=== PATIENT | female | born 1930 | race Caucasian/White ===

== ENCOUNTER 2016-12-01 10:57 | Observation (INO) | payer MEDICARE, OTHER ==
[~2016-12-01] VITALS: Ht 154.9 cm; Wt 73.5 kg
--- NOTE | ~2016-12-01 | CON ---
PATIENT'S NAME: ANDREA RIVERA [facility] AGE: 86 Y [address] ROOM: [place] [address] LOCATION: [facility] ADMIT DATE: 12/01/2016 Consultation DISCHARGE DATE: 12/02/2016 FAMILY PHYSICIAN: Markie Mohamud DO ATTENDING PHYSICIAN: Zuleima Nunez DATE OF CONSULTATION: 12/02/2016 REFERRING PHYSICIAN: Harley Rodriguez DO REQUESTING PHYSICIAN: Dr. Nunez. REASON FOR CONSULTATION: Tzunppha-jf-pvdaly aortic stenosis. HISTORY OF PRESENT ILLNESS: The patient is an 86-year-old white female, patient of Dr. Nunez, who has been complaining of symptomatic fatigue and shortness of breath with exertion. It affects her activities of daily living. This has been going on for approximately 6 months now. The patient is currently requiring 2 L of oxygen at night. The patient underwent an echocardiogram with Dr. Nunez with findings of [id number] aortic stenosis with an aortic valve area of 0.5 cm, mean gradient of 35 mm, and a peak velocity of 3.7 m/sec. Pulmonary pressures were noted at [address] Nunez has spoke to the patient with regard to undergoing a cardiac catheterization, both right and left to delineate the coronaries and then further discuss need for remediation of the aortic valve. The patient underwent a cardiac catheterization today with findings of nonobstructive coronary arteries. Dr. Nunez had asked Dr. Rodriguez to see the patient in consultation to discuss what her candidacy for a possible surgical aortic valve replacement. PAST MEDICAL HISTORY: Illnesses: Hypertension, DVT of the right leg, left breast, cancer, osteoarthritis, gout, GERD, hypothyroidism, and congestive heart failure. SURGERIES/PROCEDURES: Four right hip surgeries, cholecystectomy, hysterectomy, bilateral cataract surgery, bilateral carpal tunnel release, hernia repair x2, left mastectomy, C- section, and previous cardiac catheterization. SOCIAL HISTORY: The patient resides in [place]. She is . She has grown children. She is a nonalcohol consumer. She is a nonsmoker. FAMILY HISTORY: PATIENT'S NAME: ANDREA RIVERA [facility] AGE: 86 Y [address] ROOM: [place] [address] LOCATION: [facility] ADMIT DATE: 12/01/2016 Consultation DISCHARGE DATE: 12/02/2016 FAMILY PHYSICIAN: Markie Mohamud DO ATTENDING PHYSICIAN: Zuleima Nunez Her brother had history of an aortic valve replacement. MEDICATIONS: 1. Albuterol 2 puffs per inhalation daily. 2. Allopurinol 100 mg daily. 3. Aspirin 81 mg daily. 4. Lipitor 40 mg daily. 5. Calcium 500 mg with vitamin D daily. 6. Colchicine 0.6 mg p.o. every 48 hours. 7. Vasotec 10 mg daily. 8. Levothyroxine 50 mcg daily. 9. Lopressor 50 mg b.i.d. 10. Multivitamin. 11. Omeprazole 20 mg daily. 12. Potassium chloride 20 mEq daily. 13. Nucynta 50 mg q.4 hours p.r.n. pain. 14. Ambien 5 mg q.h.s. SYSTEM REVIEW: GENERAL: The patient has had excessive fatigue recently affecting her activities. HEENT: Does have some age-related vision changes as well as some mild hearing loss. ALLERGIES: She does have seasonal allergies. RESPIRATORY: Does have a history of asthma. She is short of breath, also dyspneic on exertion. CARDIOVASCULAR: No chest pain, chest pressure, or palpitations. She does have a history of murmur. No ongoing complaints with lower extremity edema. GI: Does have GERD like symptoms, for which she takes medication. : No specific voiding complaints. MUSCULOSKELETAL: Does have generalized arthritic aches and pains. NEUROLOGIC: Does have a history with shingles. ENDOCRINE: Does have a history with thyroid disease and takes replacement. INTEGUMENT: No known skin diseases. PHYSICAL EXAMINATION: VITAL SIGNS: Blood pressure 130/63, pulse 69, respirations 14, temp 97.8, O2 saturations 96%. Weight is 73.5 kg, height is 154.9 cm. Examination was deferred for this visit. DATA: The cardiac catheterization does return nonobstructive. The echocardiogram is as per HPI. She underwent a V/Q scan, which reveals very low probability for pulmonary emboli. PATIENT'S NAME: ANDREA RIVERA [facility] AGE: 86 Y [address] ROOM: [id number] [place], [place] [id number] LOCATION: [facility] ADMIT DATE: 12/01/2016 Consultation DISCHARGE DATE: 12/02/2016 FAMILY PHYSICIAN: Markie Mohamud DO ATTENDING PHYSICIAN: Zuleima Nunez IMPRESSION: 1. Critical aortic stenosis per echocardiogram. 2. Dyspnea on exertion. 3. Fatigue. RECOMMENDATIONS AND PLAN: Dr. Rodriguez has reviewed the studies. He has evaluated the patient for risk stratification and undergoing a surgical aortic valve replacement. The patient does score at 8% risk for mortality. This does not a factor in her fragility. Given her low cardiac output and lower flow with an EF at 40%, she would be at high risk, and therefore, a TAVR is recommended over surgical aortic valve replacement. This was discussed with the patient and family, and they are in agreeance. We would like to thank Dr. Nunez for allowing us to see the patient in consultation. AYALA MCKENNA APRN FOR HARLEY RODRIGUEZ, DLQ/modl /[id number] d: 12/16/161999 t: 12/17/16 1401, CONSULTATION REPORT
--- NOTE | ~2016-12-01 | PUL ---
PATIENT'S NAME: ANDREA RIVERA [facility] AGE: 86 Y [address] ROOM: [address] [address] LOCATION: [facility] ADMIT DATE: 12/01/2016 Pulmonary DISCHARGE DATE: 12/02/2016 FAMILY PHYSICIAN: Markie Mohamud DO ATTENDING PHYSICIAN: Zuleima Nunez NAME OF PROCEDURE: Overnight Pulse Oximetry DATE OF PROCEDURE: December 01 to December 02, 2016 REASON FOR EXAM: Nocturnal Hypoxemia RESULTS: The test was performed on room air. The recording was 5 hours, 49 minutes, and 32 seconds with a total valid sampling rate of 5 hours, 49 minutes, and 24 seconds. The highest pulse was 68, lowest pulse was 47, with a mean pulse of 57. The highest SpO2 was 98%, lowest SpO2 was 86%, with a mean SpO2 of 92.5%. The patient spent 3 hours, 48 minutes with SpO2 less than 89%, representing 1.1% of the total sleep time. The desaturation event index was elevated at 26.4. PHYSICIAN INTERPRETATION: The patient has no evidence of significant nocturnal hypoxia as per Medicare group one criteria but can have significant nocturnal hypoxia as per Medicare group two criteria. There is also evidence of an elevated desaturation event index which is suggestive of obstructive sleep apnea. Clinical correlation is advised. MD MARIO BARCENAS/sayra /[id number] dtt: 12/03/16 1523 , ROBERTO REYNOLDS dtd: 12/03/16 1135
--- NOTE | ~2016-12-01 | CATH ---
Cardiac Diagnostic Report Demographics Patient Name MIGUEL Barreto Gender Female Date of 1930 Age 86 year(s) Patient Number [id number] Date of Study 12/01/2016 Visit Number [id number] Room Number G[address] [place] [id number] Ht 155 cm Wt 73.5 kg Referring Mayra Primary Physician Physician Zuleima RICHARDSON Performing Mayra Secondary Physician Physician Zuleima RICHARDSON Diagnostic Mayra Assisting Physician Physician Zuleima RICHARDSON Interventional Physician Manager User Experience Physician Findings and Conclusions Diagnostic Findings and Conclusion Calcifications involving proximal coronaries 1. Severely elevated LVEDP 21 2. Severe PHTN 70's 3. LEVEF 40% 4. Mild CAD 5. Severe mean gradient 25mm 6. YUDY 0.9cm2 or 0.5cm2/m2 BSA 7 SV 35ml/beat 8. Low output, low gradient 9. Severe Diagnostic Recommendations CTS consult Procedure Description The patient was brought to the diagnostic cardiac catheterization-EP laboratory in the fasting, non-sedated state. Informed consent was obtained in the written and verbal form after the risks and benefits were explained. The patient had no further questions and agreed to proceed. The planned puncture-incision site(s) were shaved and prepped with ChloraPrep and draped in the usual sterile manner. Conscious sedation, supplemental oxygen, and pain control medications were delivered by a registered nurse under physician guidance. Surface ECG rhythm, blood pressure measurement, and pulse oximetry were monitored throughout the procedure. Arterial access. The access site was infiltrated with lidocaine. The vessel was entered with the Seldinger technique. A sheath was advanced into the vessel and used for catheter placement. Venous access. The access site was infiltrated with lidocaine. The vessel was entered with the Seldinger technique. A sheath was advanced into the vessel and used for catheter placement. Selective left coronary angiography. A catheter was advanced into the left coronary vessel ostium under Fluoroscopic guidance. Contrast was injected by hand. Images were obtained in multiple projections. Selective right coronary angiography. A catheter was advanced into the right coronary vessel ostium under fluoroscopic guidance. Contrast was injected by hand. Images were obtained in multiple projections. Left heart catheterization with ventriculography. A catheter was advanced across the aortic valve to the left ventricle under fluoroscopic guidance. Resting hemodynamics were obtained. With the catheter at the left ventricular apex, contrast was injected. Images were obtained in ARRIOLA projections. Post-ventriculography LV pressure was obtained. The catheter was gradually withdrawn into the aorta with continuous pressure recording. Right heart catheterization. A Boulder Leyda catheter was successfully advanced to the right atrium, right ventricle, pulmonary artery, and pulmonary artery wedge position under fluoroscopic guidance. Resting hemodynamics were obtained. Measurements included pressures, arterial and venous oxygen saturation samples, and cardiac output. The Boulder was removed without difficulty. Arterial artery hemostasis was achieved. The patient was transferred to a regular nursing floor via cart accompanied by a nurse. The patient left the laboratory in stable condition. Diagnostic Cath Status: Elective Procedure Procedure Type Diagnostic procedure:Ventriculogram:, Left, Angiography:, Right and Left Heart Cath, Coronary Angios The procedure was explained in detail to the patient. Risks, complications and alternative treatments were reviewed. Written consent was obtained. Medications Reviewed with Patient prior to Procedure. Angiographic Findings Dominance: Right Cardiac Arteries and Lesion Findings LMCA: prox 30%, distal 20% Lesion on LMCA: Distal subsection.20% stenosis . Lesion on LMCA: Ostial.30% stenosis . LAD: Abnormal.mild diffuse disease, mid 20% Lesion on Mid LAD: Mid subsection.20% stenosis . LCx: Abnormal.prox 25% OM mild diffuse disease Lesion on Prox CX: Proximal subsection.25% stenosis . RCA: Abnormal.mild diffuse disease Coronary Tree Procedure Data Procedure Date Date: 12/01/2016Start: 04:02 PMEnd: 05:25 PM Entry Locations - Retrograde Percutaneous access was performed through the Right Femoral artery (Primary location). A 6 Fr sheath was inserted. Hemostasis was successfully obtained using Manual Compression. Closure Comments: pressure held by angeilca. - Antegrade Percutaneous access was performed through the Right Femoral vein. A 7 Fr sheath was inserted. Hemostasis was successfully obtained using Manual Compression. Closure Comments: pressure held by Angelica. Procedure Medications Order and Administration + + +-------+------+ !Time !Medication !Dosage !Route ! + + +-------+------+ !12/01/2016 04:02 PM !Fentanyl !25 mcg !I.V. ! + + +-------+------+ !12/01/2016 04:09 PM !Fentanyl !25 mcg !I.V. ! + + +-------+------+ Devices Used - A6 Fr. BS JR 4 Diag. Catheterwas used for:Right coronary angiography. - A6 Fr. Dual Lumen MPwas used for:LV Pressures. - A6 Fr. BS Angled Pigtail Diag. Catheterwas used for:Left ventriculography. - A6 Fr. BS JR 4 Diag. Catheterwas used for:Right coronary angiography. - A6 Fr. BS JL 4 Diag. Catheterwas used for:Left coronary angiography. Contrast Material - Isovue [id number] ml Fluoroscopy Time: Diagnostic: 11:42 minutes. Total: 11:42 minutes. Fluoroscopy Dose: Diagnostic: 1028 mGy. Total: 1028 mGy. Estimated Blood Loss: 30 ml. Medical History Allergies - Penicillin. - Cephalosporines. - Other:(betalactams). - Penicillin. Risk Factors The patient risk factors include:peripheral arterial disease, physical activity, hypercholesterolemia, hypertension, family history of premature CAD, chronic lung disease, last creatinine: 1.3 mg/dl, creatinine clearance: 36.04 ml/min and dyslipidemia. Admission Data Admission Date: 12/01/2016 Admission Time: 08:50 PM Admit Source: Other Insurance Payors: Medicare. Admission Medications + +------+------+ + + + + !Medication !Dosage!Times !Last !Last !Administered !Comments ! ! ! !Per !Delivery !Delivery ! ! ! ! ! !Day !Date !Time ! ! ! + +------+------+ + + + + !Beta ! ! ! ! ! ! ! !Lisa ! ! ! ! ! ! ! !(any) ! ! ! ! ! ! ! + +------+------+ + + + + !Aspirin ! ! ! ! ! ! ! !(any) ! ! ! ! ! ! ! + +------+------+ + + + + !Statin ! ! ! ! ! ! ! !(any) ! ! ! ! ! ! ! + +------+------+ + + + + Clinical Evaluation Leading to Procedure - Anti-anginal medications were prescribed during the past two weeks. The medications are: Beta Blockers, Ca channel Blockers and Other. - There were no CAD presentation symptoms. - There were no anginal symptoms. Anti-anginal medications were prescribed during the past two weeks. The medication is: Beta Blockers. - The patient has been in a state of heart failure within the past two weeks. - The patient's heart failure status was assessed as NYHA Class III, with CHF symptoms of MARCIAL. - The reason for the patient's mason tender restoration labor visit is evaluation of cardiomyopathy and/or evaluation of left ventricular systolic dysfunction. VA Ventriculography Findings Rey elevated LVEDP 21 LV function assessed as:Abnormal. Ejection Fraction - 12/01/2016 - Method: LV gram. EF%: 40. Hemodynamics Condition: Rest O2 Consumption: Estimated: 153.44Heart Rate: 70 bpm Oxygen Saturation +--------+-----+----+ +----+ + !Location!pCO2 !pO2 !% Saturation !Hgb !O2 Content ! +--------+-----+----+ +----+ + !FA ! ! !88.1 !11.6! ! +--------+-----+----+ +----+ + !PA ! ! !46.2 !11.6! ! +--------+-----+----+ +----+ + Pressures (mmHg) +-----+ + !Site !Pressure ! +-----+ + !RA ! (15) ! +-----+ + !RA ! (16) ! +-----+ + !RV ! ,16 ! +-----+ + !PCW ! (29) ! +-----+ + !PCW !32/28 (25) ! +-----+ + !PA !74/27 (45) ! +-----+ + !LV !177/16 ,23 ! +-----+ + !LV !176/14 ,22 ! +-----+ + !AO !167/76 (112) ! +-----+ + !LV !180/20 ,23 ! +-----+ + !AO !165/76 (113) ! +-----+ + !LV !179/18 ,22 ! +-----+ + !AO !168/ (115) ! +-----+ + !LV !181/19 ,23 ! +-----+ + !AO !164/76 (113) ! +-----+ + !LV !178/18 ,21 ! +-----+ + !AO !165/78 (113) ! +-----+ + !LV !179/20 ,20 ! +-----+ + !AO !156/72 (108) ! +-----+ + !LV !173/16 ,20 ! +-----+ + !LV !176/17 ,23 ! +-----+ + !LV !174/16 ,21 ! +-----+ + !LV !167/13 ,19 ! +-----+ + !LV !172/18 ,23 ! +-----+ + !AO !162/73 (109) ! +-----+ + !LV !171/16 ,21 ! +-----+ + Cardiac Output + + +------+ !Time !Cardiac Output (l/min) !Use ! + + +------+ !12/01/2016 04:21 PM !2.55 !False ! + + +------+ !12/01/2016 04:22 PM !2.36 !True ! + + +------+ !12/01/2016 04:22 PM !2.42 !True ! + + +------+ !12/01/2016 04:23 PM !2.32 !True ! + + +------+ !12/01/2016 04:24 PM !2.09 !False ! + + +------+ Cardiac Output +-------+ + + + !Method !CO (l/min) !CI (l/min/m2) !SV (ml) ! +-------+ + + + !Shorty !2.32 !1.3 !33.1 ! +-------+ + + + !Thermal!2.495504 !1.4 !36.98 ! +-------+ + + + Valve Gradients and Areas + +--------+--------+--------+---------+ + + !Valve !Peak !Mean !Area !Index !Flow !Source ! + +--------+--------+--------+---------+ + + !Aortic !9 !10 !0.87 !0.5 !121.91 !Shorty ! + +--------+--------+--------+---------+ + + !Aortic !9 !10 !0.89 !0.51 !124.37 !Thermal ! + +--------+--------+--------+---------+ + + Shunts Oxygen Values O2 Capacity 157.76 O2 Consumption 153.44 Flows (l/min) Qs 2.32 Vascular Resistance (dynes x sec x cm-5) + +-----+-----+-----+----+---------+-------+ !CO method !TSVR !SVR !TPVR !PVR !TPVR/TSVR!PVR/SVR! + +-----+-----+-----+----+---------+-------+ !Shorty !46.97!39.94!19.19!8.54!0.41 !0.21 ! + +-----+-----+-----+----+---------+-------+ !Thermal !46.04!39.15!18.82!8.37!0.41 !0.21 ! + +-----+-----+-----+----+---------+-------+ !Qp or Qs !46.97!39.94! ! ! ! ! + +-----+-----+-----+----+---------+-------+ Discharge Data Discharge Date: 12/02/2016 Hospital Status: Inpatient Signatures dtt: Zuleima Nunez dtd: 12/01/16 1601 Physician Self Edit
[~2016-12-01 10:57] MED LIST: ALLOPURINOL100 MG PO; AMBIEN5 MG PO; ASPIRIN EC81 MG PO; CALCIUM 500 +1 EAC5 PO; CARDIZEM CD)(T180 MG PO; COLCHICINE0.6 MG PO; LEVOTHROID (SY50 MCG PO; LIPITOR40 MG PO; LOPRESSOR50 MG PO; MULTIVITAMINS1 EAC1 PO; NUCYNTA50 MG PO; OMEPRAZOLE20 M1 PO; OXYGEN M-15 INH; PROVENTIL OR V6.7 GM INH; VASOTEC10 MG PO
[2016-12-02 04:26] LABS: ANION GAP 12.4 (10.0-19.0); CREATININE 1.1 mg/dL (0.5-1.1); POTASSIUM 3.4 mMol/L (3.7-5.1)
[2016-12-02] MEDS ORDERED: LASIX20 MG PO (11:40)
[2016-12-02] MEDS ORDERED: K-TAB 10MEQ10 MEQ PO (11:42)
[2016-12-24] MEDS ORDERED: ASCORBIC ACID500 MG PO (12:11)
[2016-12-24] MEDS ORDERED: NITROFURANTOIN100 MG PO (12:22)
== END 2016-12-02 12:40 | disposition disaster alternative care site (69) ==
LOC: GPCU 10:57 → GPOC 10:57 → GPCU 20:49 → GPOC 20:50 → GPCU 20:50 → GPOC 12-02 12:40
PROVIDERS: ADMIT Internal Medicine Interventional Cardiology
DX: I25.10 Atherosclerotic heart disease of native coronary artery without angina pectoris (principal); I35.0 Nonrheumatic aortic (valve) stenosis; I11.0 Hypertensive heart disease with heart failure; I50.9 Heart failure, unspecified; E78.5 Hyperlipidemia, unspecified; M10.9 Gout, unspecified; Z79.82 Long term (current) use of aspirin; Z79.01 Long term (current) use of anticoagulants; Z79.899 Other long term (current) drug therapy; Z90.710 Acquired absence of both cervix and uterus; Z90.49 Acquired absence of other specified parts of digestive tract; Z96.641 Presence of right artificial hip joint; Z88.0 Allergy status to penicillin; Z98.49 Cataract extraction status, unspecified eye; Z88.8 Allergy status to other drugs, medicaments and biological substances
CPT/HCPCS: A9270; A9539; A9540; C1769; C1887; J1644; J2001; J2250; J3010; J7030; J7060

== ENCOUNTER → 2016-12-29 | Day surgery (SDC) | payer MEDICARE, OTHER ==
[~2016-12-29] VITALS: Ht 154.9 cm; Wt 74.0 kg
[~2016-12-29] MED LIST changes: +ASCORBIC ACID500 MG PO; +K-TAB 10MEQ10 MEQ PO; +LASIX20 MG PO; +NITROFURANTOIN100 MG PO
--- NOTE | ~2016-12-29 | ECHO ---
Transesophageal Echocardiography Report (YINKA) Demographics Patient Name ANDREA RIVERA Date of Study 12/29/2016 Patient Number [id number] Visit Number [id number] Date of 1930 Room Number Gender Female Number Age 86 year(s) Referring Cade Patel DO Precision Machining Instructor Jacek Hernandez RVT, Physician Bill Tillman RDCS, MD Physician Interpreting Bill Tillman Cash Posting Representative Physician MD Supervising Ordering Bill Tillman MD/MLP Physician MD Nurse Stress Top Dyeing Machine Tender Conclusions Summary Mildly reduced LV systolic function. Estimated LVEF is about 30-35%. Grossly normal RV size and systolic function. Moderate LA enlargement. The aortic valve is trileaflet with restricted opening. Mild AI. The aortic valve area by planimetry is 0.7 cm2. Mild MR. Mild to moderate TR. Procedure Type of Study YINKA procedure:Color Doppler. Procedure Date Date: 12/29/2016 Start: 08:58 AM Study Location: Inpatient Portable Technical Quality: Adequate visualization Indications:Aortic stenosis. Appropriate Use Criteria: 8 Patient Status: Routine Rhythm: Paced HR: 63 bpm BP: 141/70 mmHg YINKA Performed By: the attending and the gate supervisor Allergies - Penicillin. - Cephalosporines. - Other:(betalactams). - Penicillin. M-Mode/2D Measurements AO Root Dimension: 2.2 cm LVOT: 1.9 cm Doppler Measurements AV Peak Velocity: 1.72 m/s AV Peak Gradient: 11.83 mmHg AV Mean Gradient: 7 mmHg Findings Right Ventricle Normal right ventricular size and function. Left Atrium There is no LA or LA appendage thrombus or spontaneous contrast. There is no evidence of patent foramen ovale or atrial septal defect by color Doppler. The left atrium is moderately dilated. Right Atrium The right atrium is not dilated. Mitral Valve Mild calcification of the mitral valve. Mild mitral regurgitation by color Doppler. Aortic Valve The aortic valve is trileaflet with restricted opening. Mild AI. The aortic valve area by planimetry is 0.7 cm2. Unable to get significant gradient across AV even in transgastric views, as images were off axis. Tricuspid Valve Normal appearing tricuspid valve. Mild-moderate tricuspid regurgitation by color Doppler. Pulmonic Valve Grossly normal pulmonic valve structure and function. Miscellaneous The patient was brought to the [facility] lab in the fasting state after informed consent was obtained in the written and verbal format. Bite block was placed by me. Once adequate anesthesia was obtained with anesthesia guidance with propofol sedation the YINKA probe was placed by me down into the stomach. It was pulled back slightly after a few views were obtained in the transgastric level to the transesophageal position where the majority of the case was carried out. At the end of the case the probe was rotated and withdrawn. Patient tolerated the procedure well. Mild thoracic aorta plaque. Visualized portion of the aortic valve appear grossly normal in size. Aorta at level of sinuses measured 2.9cm, at sinotubular junction 2.2 cm and ascending aorta was 2.9 cms. Signature dtt: MARY TILLMAN dtd: 12/29/16 0858 Physician Self Edit
== END ==
LOC: GOPD 12-24
DX: I35.2 Nonrheumatic aortic (valve) stenosis with insufficiency (principal); I42.9 Cardiomyopathy, unspecified; I34.0 Nonrheumatic mitral (valve) insufficiency; I36.1 Nonrheumatic tricuspid (valve) insufficiency; I27.2 Other secondary pulmonary hypertension; I10 Essential (primary) hypertension; E78.00 Pure hypercholesterolemia, unspecified; Z82.49 Family history of ischemic heart disease and other diseases of the circulatory system; E03.9 Hypothyroidism, unspecified; M10.9 Gout, unspecified; Z88.0 Allergy status to penicillin; Z79.899 Other long term (current) drug therapy
CPT/HCPCS: J2001; J7030

== ENCOUNTER → 2017-01-09 | Outpatient (CLI) | payer MEDICARE, OTHER ==
--- NOTE | ~2017-01-09 | ECHO ---
Stress Echocardiography Report Demographics Patient Name ANDREA RIVERA Date of Study 01/09/2017 Patient Number [id number] Visit Number [id number] Date of 1930 Room Number Accession Number [id number] Gender Female Age 86 year(s) Referring Cade Patel DO Photo Lab Specialist Brenden Allen RVT Physician Bill Tillman MD Physician Interpreting Bill Transfer Table Operator Physician Layne RICHARDSON Supervising Bill Tillman Ordering Bill RICHARDSON/CLEMENT RICHARDSON Physician Layne RICHARDSON Nurse Kati Barreto RN Stress Tooling Engineering Tech Logan Martins, RVT Medications Reviewed with Patient prior to Procedure. Conclusions Summary Dobutamine stress echo for low flow low gradient Aortic stenosis: Baseline Baseline: 84 bpm Mean gradient: 11 mmHg Peak gradient:18 mmHg Vmax: 2.14 m/s LVOT VTI: 11.7 cm AV VTI: 40.6 cm Index VTI: 0.29 YUDY (VTI) .82 cm2 YUDY (Vmax) .80 cm2 EF 25-30% LVOT 1.9 cm Peak (20 mcg of dobutamine) Peak: 162 bpm Mean gradient: 26 mmHg Peak gradient:43 mmHg Vmax: 3.3 m/s LVOT VTI: 16.2 cm AV VTI: 54.6 cm Index VTI: 0.30 YUDY (VTI) .84 cm2 YUDY (Vmax) .99 cm2 EF 40% LVOT 1.9 cm There is contractile reserve with improvement in LV systolic function at 20 mcgs/kg/min of dobutamine, however, the mean and peak gradients across the AV only increased to 43 and 26 mmHg. The AV Vmax at peak stress was 3.3 m/s. These gradients do not meet criteria for severe . Patient tolerated the procedure well without any complications. Procedure Type of Study Stress procedure:Pharm Stress Echo w/o Contrast. Procedure Date Date: 01/09/2017 Start: 09:53 AM Study Location: Echo Lab Technical Quality: Adequate visualization Indications:Aortic stenosis. Additional Indications:ECG portion of dobutamine stress echo is non diagnostic due to presence of underlying LBBB. Appropriate Use Criteria: 9 Patient Status: Routine HR: 85 bpm BP: 129/60 mmHg Allergies - Penicillin. - Cephalosporines. - Other:(betalactams). - Penicillin. Risk Factors - The patient's risk factor(s) include: diabetes mellitus and treated dyslipidemia. Rest ECG NSR, LBBB Resting HR:86 bpmResting BP:129/60 mmHg Stress Stress Type: Pharmacologic Peak HR: 122 bpm HR BP Product: [id number] Peak BP: 150/75 mmHg Predicted HR: 134 bpm % of predicted HR: 91 Results Global LVEF (rest): Severely depressed (LVEF <30%) ECG LBBB. Arrhythmias Ventricular bigeminy. Symptoms No symptoms with dobutamine infusion. Procedure Medications - Dobutamine I.V. 5 mcg/kg/min. - Dobutamine I.V. 10 mcg/kg/min. - Dobutamine I.V. 15 mcg/kg/min. - Dobutamine I.V. 20 mcg/kg/min. M-Mode/2D Measurements Cardiac Output: 3.23 l/min LVOT: 1.9 cm LVOT VTI: 13.4 cm LV Stroke volume: 37.97 ml Doppler Measurements AV Peak Velocity: 2.03 m/s AV Peak Gradient: 16.48 mmHg AV Mean Gradient: 18 mmHg LVOT Peak Velocity: 0.61 m/s Contractility Score Rest LV regional wall motion:(0-Non visualized 1-Normal 2-Hypokinesis 3-Akinesis 4-Dyskinesis 5-Aneurysm) Signature dtt: LAYNE TILLMAN dtd: 01/09/17 0953 Physician Self Edit
== END | disposition disaster alternative care site (69) ==
LOC: GCAR 09:14
DX: I35.0 Nonrheumatic aortic (valve) stenosis (principal); R94.31 Abnormal electrocardiogram [ECG] [EKG]
CPT/HCPCS: J1250